=== PATIENT | male | born 1955 | race Caucasian/White ===

== ENCOUNTER 2024-08-22 13:53 | Day surgery (SDC) | payer MEDICARE ==
[2024-08-22] MEDS ORDERED: BUPIVACAINE 0.5% VIAL IJ ONE (13:54)
[2024-08-22] MEDS ORDERED: LIDOCAINE HCL 1% AMPUL 5 ML IJ ONE (13:54)
[2024-08-22] MEDS ORDERED: Depo-Medrol 40 MG/ML IM ONE (13:54)
--- NOTE | 2024-08-22 16:41 | XRAY ---
Indication: Right hip injection. Intraoperative fluoroscopy provided for 10 seconds. Single digital spot image submitted for interpretation demonstrates needle tip projecting lateral to right femur head. Small amount of contrast injected for needle tip placement. Correlate with intraoperative findings/report.
--- NOTE | 2024-08-22 16:45 | XRAY ---
10 seconds of fluoroscopy was used in surgery for a right intra-articular hip injection.
== END 2024-08-22 15:55 | disposition home or self-care (01) ==
LOC: SDC-PAIN 13:53
PROVIDERS: ATTEND Psychiatry & Neurology Pain Medicine
DX: M16.11 Unilateral primary osteoarthritis, right hip (principal)
CPT/HCPCS: 20610; 73501; 77002; Q9966